=== PATIENT | male | born 1935 | race Caucasian/White ===

== ENCOUNTER 2017-06-11 08:17 | Inpatient (IN) | payer OTHER, BC ==
--- NOTE | 2017-06-11 08:45 | EDPHY ---
H & P Time Seen by Provider: 06/11/17 08:28 HPI/ROS: CHIEF COMPLAINT: Way not working, shortness of breath HISTORY OF PRESENT ILLNESS: Patient is an 82-year-old male with a history of dementia on Coumadin for AFib and previous DVT who presents emergency department with a malfunctioning suprapubic catheter. Patient's family states he had catheter placed over year ago for a "not functioning bladder." He has had numerous TURP in the past. The family states that he normally has his catheter replaced every month. He is slightly over [place] because he has been traveling. Patient flew from [place] to [place] yesterday. He lives in [place]. The patient's family noticed mild increased shortness of breath today. No cough or fever. The patient denies any chest pain or shortness of breath. Patient states he is feeling well. If it were up to the patient he would not come to the emergency department. REVIEW OF SYSTEMS: My complete review of systems is negative except as mentioned in the HPI. Past Medical/Surgical History: Includes DVT, AFib, dementia, prostate cancer Past surgical history: Includes suprapubic catheter placement, TURP Social history: The patient is . He is from [place]. He does not smoke. Smoking Status: Never smoked Physical Exam: Vitals noted GENERAL: Well-appearing, in no acute distress, alert. HEENT: Eyes normal to inspection, normal pharynx, no signs of dehydration. NECK: No thyromegaly, no lymphadenopathy, supple. RESPIRATORY: Clear to auscultation bilaterally, no rales, rhonchi or wheezing. CVS: Regular rate and rhythm, no rubs, murmurs, or gallops. ABDOMEN: Soft, nontender, nondistended, no organomegaly. Patient has a suprapubic catheter in place. There is no surrounding erythema or discharge. BACK: Normal to inspection, no CVA tenderness. SKIN: Normal color, no rash, warm, dry. No pallor. EXTREMITIES: No pedal edema, no calf tenderness, no Homans sign or cords, no joint swelling. NEURO/PSYCH: Alert and oriented, normal mood and affect, normal motor sensory exam. Constitutional: Initial Vital Signs Temperature (C) 36.4 C 06/11/17 08:23 Heart Rate 107 H 06/11/17 08:23 Respiratory Rate 18 06/11/17 08:23 Blood Pressure 148/112 H 06/11/17 08:23 O2 Sat (%) 90 L 06/11/17 08:23 O2 Delivery Mode Room Air Allergies/Adverse Reactions: No Known Allergies Allergy (Unverified 06/11/17 08:45) Home Medications: Medication Instructions Recorded Aricept 06/11/17 Bystolic 06/11/17 Cephalexin [Keflex (*)] 500 mg PO QID 7 Days 06/11/17 Coumadin 06/11/17 Namenda 10 mg 06/11/17 Medical Decision Making - Diagnostics EKG Interpretation: Atrial fibrillation at 95. Normal axis. Mildly prolonged QT. No ST or T-wave abnormality. Imaging Results: Imaging Impressions Chest X-Ray 06/11/17 08:39 Impression: Mild CHF. ED Course/Re-evaluation: In the emergency department I discussed possible etiologies with the patient. I answered all his questions. Due to his shortness of breath chest x-ray, EKG laboratory studies were ordered. UA was also ordered. Patient's Way catheter was flushed by the nurse. She states she had resistance and was unable to fully flushed the catheter. Procedure: Bedside ultrasound of bladder Indication: Suprapubic catheter malfunction At the patient's bedside I performed ultrasound. This showed a large amount of volume in the bladder. The catheter appeared to be in place. Patient is noted to have a 22 [place] suprapubic catheter in place. The largest catheter available in the emergency department is 20 Ecuadorean. I discussed the size difference with Dr. Garcia from Urology. He felt comfortable having me replace the patient's 22 Ecuadorean suprapubic catheter with the 20 Ecu[place]orean catheter. I explained this to the patient and his family. [place] [address]. The patient is anticoagulated. The patient's D-dimer and troponin are negative. Patient has mildly elevated creatinine 1.5. BNP is elevated at 9000. Patient was given Rocephin 1 g IV. Urine cultures pending. The chest x-ray: Mild CHF. No focal trait. The nursing staff attempted to remove the Way catheter. They obtained 6 mL of fluid from the balloon. There was resistance to flow. The fluid was discolored. I personally went evaluated the catheter. I was unable to withdraw any further balloon fluid. There was resistance when tension was placed on the catheter. I discussed this with Dr. Garcia from Urology. He recommended that the catheter be removed even with resistance. I discussed this with the family. I answered all her questions. The patient was given fentanyl 50 mcg IV. I removed his Way catheter with mild resistance. It was noted that the balloon had some mild calcification and there was some degradation of the tip of the Way catheter. New way placed. 400 ml out. Dark color. Sent to lab Pt ambulated with sat at 88%. Patient was noted to have an elevated white count. He did have urinary retention and abnormal urine. He has received Rocephin. He does not appear septic or toxic. The patient also had elevated BNP and a chest x-ray consistent with CHF. The patient has a mildly low oxygen saturation. He was given Lasix 40 mg IV. I discussed the case with hospitalist service. Dr. Reza will admit. Patient will go to the PCU. I discussed this with the patient and family. I answered all his questions. Differential Diagnosis: My differential includes but is not limited to catheter malfunction, urinary tract infection, pyelonephritis, dehydration, bacteremia, sepsis, pneumonia, bronchitis, PE, ACS, CHF - Data Points Laboratory Results: Laboratory Results 06/11/17 09:15 06/11/17 09:15 06/11/17 06/11/17 06/11/17 10:25 09:15 09:15 WBC RBC Hgb Hct MCV MCH MCHC RDW Plt Count MPV Neut % (Auto) Lymph % (Auto) [place] % (Auto) Eos % (Auto) Baso % (Auto) Nucleat RBC Rel Count Absolute Neuts (auto) Absolute Lymphs (auto) Absolute Monos (auto) Absolute Eos (auto) Absolute Basos (auto) Absolute Nucleated RBC Immature Gran % Immature Gran # PT 24.6 SEC H SEC (12.0-15.0) INR 2.24 H (0.83-1.16) APTT 33.6 SEC SEC (23.0-38.0) D-Dimer 0.27 ug/mLFEU ug/mLFEU (0.00-0.50) Sodium 146 mEq/L H mEq/L (134-144) Potassium 5.2 mEq/L mEq/L (3.5-5.2) Chloride 107 mEq/L mEq/L (97-110) Carbon Dioxide 24 mEq/l mEq/l (22-31) Anion Gap 15 mEq/L mEq/L (8-16) BUN 28 mg/dL H mg/dL (7-23) Creatinine 1.5 mg/dL H mg/dL (0.7-1.3) Estimated GFR 45 Glucose 173 mg/dL H mg/dL (70-100) Calcium 9.7 mg/dL mg/dL (8.5-10.4) Troponin I 0.034 ng/mL ng/mL (0.000-0.034) NT-Pro-B Natriuret Pep 9530 pg/mL H pg/mL (0-450) Urine Color RED Urine Appearance CLOUDY Urine pH 8.5 H (5.0-7.5) Ur Specific [place] 1.015 (1.002-1.030) Urine Protein 2+ H (NEGATIVE) Urine Ketones NEGATIVE (NEGATIVE) Urine Blood 3+ H (NEGATIVE) Urine Nitrate NEGATIVE (NEGATIVE) Urine Bilirubin NEGATIVE (NEGATIVE) Urine Urobilinogen 0.2 EU EU (0.2-1.0) Ur Leukocyte Esterase 2+ H (NEGATIVE) Urine RBC >182 /hpf H /hpf (0-3) Urine WBC 10-15 /hpf H /hpf (0-3) Ur Epithelial Cells TRACE /lpf /lpf (NONE-1+) Triple Phos Crystals TRACE /hpf /hpf (NONE-1+) Urine Bacteria 4+ /hpf H /hpf (NONE SEEN) Hyaline Casts 3-5 /lpf H /lpf (0-1) Granular Casts OCCASIONAL /lpf /lpf (0-1) Urine Yeast OCCASIONAL /hpf H /hpf (NONE SEEN) Urine Glucose NEGATIVE (NEGATIVE) 06/11/17 09:15 WBC 16.47 10^3/uL H 10^3/uL (3.80-9.50) RBC 5.24 10^6/uL 10^6/uL (4.40-6.38) Hgb 16.6 g/dL g/dL (13.7-17.5) Hct 49.9 % % (40.0-51.0) MCV 95.2 fL fL (81.5-99.8) MCH 31.7 pg pg (27.9-34.1) MCHC 33.3 g/dL g/dL (32.4-36.7) RDW 14.8 % % (11.5-15.2) Plt Count 211 10^3/uL 10^3/uL (150-400) MPV 12.2 fL H fL (8.7-11.7) Neut % (Auto) 90.7 % H % (39.3-74.2) Lymph % (Auto) 3.9 % L % (15.0-45.0) [place] % (Auto) 4.6 % % (4.5-13.0) Eos % (Auto) 0.0 % L % (0.6-7.6) Baso % (Auto) 0.2 % L % (0.3-1.7) Nucleat RBC Rel Count 0.0 % % (0.0-0.2) Absolute Neuts (auto) 14.95 10^3/uL H 10^3/uL (1.70-6.50) Absolute Lymphs (auto) 0.64 10^3/uL L 10^3/uL (1.00-3.00) Absolute Monos (auto) 0.75 10^3/uL 10^3/uL (0.30-0.80) Absolute Eos (auto) 0.00 10^3/uL L 10^3/uL (0.03-0.40) Absolute Basos (auto) 0.03 10^3/uL 10^3/uL (0.02-0.10) Absolute Nucleated RBC 0.00 10^3/uL 10^3/uL (0-0.01) Immature Gran % 0.6 % % (0.0-1.1) Immature Gran # 0.10 10^3/uL 10^3/uL (0.00-0.10) PT INR APTT D-Dimer Sodium Potassium Chloride Carbon Dioxide Anion Gap BUN Creatinine Estimated GFR Glucose Calcium Troponin I NT-Pro-B Natriuret Pep Urine Color Urine Appearance Urine pH Ur Specific [place] Urine Protein Urine Ketones Urine Blood Urine Nitrate Urine Bilirubin Urine Urobilinogen Ur Leukocyte Esterase Urine RBC Urine WBC Ur Epithelial Cells Triple Phos Crystals Urine Bacteria Hyaline Casts Granular Casts Urine Yeast Urine Glucose Medications Given: Discontinued Medications Fentanyl (Sublimaze) 50 mcg IVP EDNOW ONE Stop: 06/11/17 09:55 Last Admin: 06/11/17 09:58 Dose: 50 mcg Furosemide (Lasix Injection) 40 mg IVP EDNOW ONE Stop: 06/11/17 10:38 Last Admin: 06/11/17 10:57 Dose: 40 mg Ceftriaxone Sodium/Dextrose (Rocephin 1 Gm (Premix)) 50 mls @ 100 mls/hr IV EDNOW ONE PRN Reason: Protocol Stop: 06/11/17 09:57 Last Admin: 06/11/17 10:31 Dose: Not Given Ceftriaxone Sodium 1 gm/ (Sodium Chloride) 100 mls @ 200 mls/hr IV EDNOW ONE PRN Reason: Protocol Stop: 06/11/17 10:30 Last Admin: 06/11/17 10:02 Dose: 100 mls Departure - Departure Disposition: Home, Routine, Self-Care Clinical Impression: Urinary (tract) obstruction Suprapubic catheter dysfunction Qualifiers: Encounter type: initial encounter Qualified Code(s): T83.010A - Breakdown ( mechanical) of cystostomy catheter, initial encounter CHF (congestive heart failure) Qualifiers: Congestive heart failure type: unspecified congestive heart failure type Congestive heart failure chronicity: acute Qualified Code(s): I50.9 - Heart failure, unspecified Urinary tract infection Qualifiers: Urinary tract infection type: catheter-associated UTI Indwelling urinary catheter type: cystostomy catheter Encounter type: initial encounter Qualified Code(s): T83.510A - Infection and inflammatory reaction due to cystostomy catheter, initial encounter Condition: Good
--- NOTE | 2017-06-11 08:51 | CPEKG ---
Heart Rate: 95 RR Interval: 632 QRSD Interval: 88 QT Interval: 392 QTC Interval: 493 QRS [place]: 70 T Wave [place]: -66 EKG Severity - ABNORMAL ECG - EKG Impression: ATRIAL FIBRILLATION EKG Impression: LOW VOLTAGE IN FRONTAL LEADS EKG Impression: BORDERLINE PROLONGED QT INTERVAL Electronically Signed By: Luiza Garcia 11-Jun-2017 15:05:53
[2017-06-11 09:25] LABS: % IMMATURE GRANULYOCYTES 0.6 % (0.0-1.1); ADD DIFF? NO; ADD MORPH? NO; ADD SCAN? NO; ATYPICAL LYMPHOCYTE FLAG 0 (0-99); FRAGMENT RBC FLAG 0 (0-99); HEMATOCRIT 49.9 % (40.0-51.0); HEMOGLOBIN 16.6 g/dL (13.7-17.5); LEFT SHIFT FLG 0 (0-99); LIPEMIA HEMOLYSIS FLAG 80 (0-99); MEAN CELL HEMOGLOBIN 31.7 pg (27.9-34.1); MEAN CELL HEMOGLOBIN CONCENTR. 33.3 g/dL (32.4-36.7); MEAN CELL VOLUME 95.2 fL (81.5-99.8); MEAN PLATELET VOLUME 12.2 fL (8.7-11.7); PLATELET CLUMPS FLAG 10 (0-99); PLATELET COUNT 211 10^3/uL (150-400); RED BLOOD CELL COUNT 5.24 10^6/uL (4.40-6.38); RED CELL DISTRIBUTION WIDTH 14.8 % (11.5-15.2)
[2017-06-11 09:37] LABS: CALCIUM 9.7 mg/dL (8.5-10.4); CREATININE 1.5 mg/dL (0.7-1.3); POTASSIUM 5.2 mEq/L (3.5-5.2)
[2017-06-11] MEDS ORDERED: cefTRIAXone 1 GM VIAL ONE (09:45)
[2017-06-11] MEDS ORDERED: NS 100 ML BAG (MINI-BAG) IV ONE (09:47)
[2017-06-11 09:53] LABS: TROPONIN I 0.034 ng/mL (0.000-0.034)
[2017-06-11] MEDS ORDERED: fentaNYL 100 MCG/2 ML INJ IVP ONE (09:54)
[2017-06-11 09:59] LABS: INR 2.24 (0.83-1.16); PROTIME(PATIENT) 24.6 SEC (12.0-15.0)
[2017-06-11 10:00] LABS: APTT 33.6 SEC (23.0-38.0)
[2017-06-11 10:33] LABS: COLOR RED; LEUKOCYTE ESTERASE,URINE 2+ (NEGATIVE); NITRITE,URINE NEGATIVE (NEGATIVE); PH,URINE 8.5 (5.0-7.5)
[2017-06-11] MEDS ORDERED: FUROSEMIDE 40 MG/4 ML VIAL IVP ONE ×2 (10:37→14:29)
[2017-06-11 10:47] LABS: BACTERIA 4+ /hpf (NONE SEEN); RBC,URINE >182 /hpf (0-3); YEAST OCCASIONAL /hpf (NONE SEEN)
[2017-06-11 10:50] LABS: GRANULAR CASTS OCCASIONAL /lpf (0-1)
[2017-06-11] MEDS ORDERED: VANCOMYCIN HCL/NORMAL SALINE 250 ML IV ONE (14:29)
[2017-06-11] MEDS ORDERED: ACETAMINOPHEN 325 MG TAB PO PRN (14:30)
[2017-06-11] MEDS ORDERED: ONDANSETRON 4 MG/2 ML VIAL IVP PRN (14:30)
[2017-06-11] MEDS ORDERED: ONDANSETRON DISINTEGRATING 4 MG TAB PO PRN (14:30)
--- NOTE | 2017-06-11 15:44 | GHP ---
[f rep st] HISTORY AND PHYSICAL DATE OF ADMISSION: 06/11/2017 HISTORY OF PRESENT ILLNESS: The patient is a pleasant 82-year-old gentleman with a history of atria l fibrillation, what appears to be diastolic heart failure, and suprapubic catheter for urinary rete ntion who presented to Urgent Care today with a poorly functioning catheter. Usually he wears a nig ht bag and it is typically full in the morning. It was empty this morning. It was last changed in April. It was due to be changed recently, but because of some travel, it has not been changed. He h as not had fever or chills. He has not had shortness of breath, PND, or orthopnea. It appears the patient has a history of dementia and notable a significant amount of confabulation d uring our exam. He asks if I have taken care of him previously, and he has known me well, but he rendon s never been to this hospital before. I certainly have never met him. It does not sound like he has had fever, chills, cough, sputum, nausea, vomiting, or diarrhea. He s ays he has lower extremity edema "but everybody gets that." REVIEW OF SYSTEMS: Complete 10-point review of systems conducted and negative except as noted in th e HPI. PAST MEDICAL HISTORY: 1. 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 2. History of BPH with TURPs in the past. 3. Prostate cancer. 4. History of DVT. 5. AFib. 6. Dementia. 7. Assumed diastolic heart failure. ALLERGIES: No known drug allergies. HOME MEDICATIONS: Warfarin, nebivolol, memantine, donepezil. SOCIAL HISTORY: He is a retired psychotherapist, drinks alcohol, denies cigarettes. Originally fro [facility], lives in [place]. FAMILY HISTORY: Reviewed and unremarkable. PHYSICAL EXAMINATION: VITAL SIGNS: Presenting vitals blood pressure 148/112, pulse 107 and now 90s , breathing 18 times a minute, 98% on room air. GENERAL: No acute distress. Sclerae anicteric. O ropharynx clear. Mucous membranes are moist. NECK: Supple without lymphadenopathy. JVD is elevat ed to the angle of jaw, seated or lying at 30 degrees. LUNGS: Clear to auscultation anterolaterall y. HEART: S1 and S2, sounding regular. ABDOMEN: Soft, nontender, nondistended. The area around the suprapubic catheter is clean, dry, and intact. LOWER EXTREMITIES: Show 1+ edema bilaterally. Calves nontender. SKIN: Without rash. NEUROLOGIC: Exam is nonfocal. LABORATORY: Sodium 146, potassium 5.2, chloride 107, bicarb 24, BUN 28, creatinine 1.5, glucose 173 . Troponin 0.034. BNP is 9530, no prior for comparison. INR is 2.2. White count 16, hematocrit 4 9.9, platelets 211,000. UA shows greater than 182 red cells, 10-15 white cells. IMAGING: Chest x-ray: Interpreted by me, shows small bilateral effusions with modest volume overlo ad. EKG: Interpreted by me, shows AFib at 95 with normal axis and intervals. There are no ST or T -wave changes other than T-wave inversion in II and III which is relatively normal. There is a vari ant. There are no priors for comparison. I have discussed the case Dr. Luiza Garcia. ASSESSMENT AND PLAN: This is an 82-year-old gentleman with dementia who presents with clogged [place] , probable urinary tract infection, and mild volume overload. 1. Volume overload. I suspect this is acute on chronic diastolic heart failure. He received some Lasix in the emergency department. I will give him another dose now. His elevated BNP is noted, bu t age and impaired renal function will make this appear higher. I do not know what his prior is. W ill give additional diuresis. At this point in time, I will hold off on ordering an echocardiogram since he gets the bulk of his care in [place], and he is just here for the weekend. 2. Indeterminate troponin. I suspect this is strain in the setting of renal failure. We will foll ow it. He does not have anginal symptoms nor does he have dynamic EKG changes. 3. Question urinary tract infection. It is really difficult to make a case to not treat this vivi g iven a crusted catheter, difficult removal, delayed change, pyuria, leukocytosis, and confusion. He received ceftriaxone in the emergency department. His is unaware of any evidence of resistant organisms. I will give him 1 g of vancomycin, given his suprapubic catheter. Will await urine cul ture. 4. Renal dysfunction. The patient sees a bleach machine operator in [place]. I do not know what his baselin e creatinine is. We will follow. Hypervolemic, as I have mentioned. 5. Prophylaxis. INR therapeutic. 6. Atrial fibrillation. Noted, will follow. 7. Disposition: Inpatient status. /[id number]/MODL
[2017-06-11 16:13] LABS: TROPONIN I 0.051 ng/mL (0.000-0.034)
[2017-06-11] MEDS: WARFARIN SODIUM 5 MG TAB PO SCH (16:29)
[2017-06-11] MEDS: MEMANTINE HCL 5 MG TAB PO SCH (20:34)
[2017-06-11] MEDS ORDERED: NON-FORMULARY NEW DRUG (Memantine Hcl [Namenda 10 Mg] 10 MG) PO SCH (21:00)
[2017-06-12 04:56] LABS: ANION GAP 9 mEq/L (8-16); CALCIUM 8.8 mg/dL (8.5-10.4); CARBON DIOXIDE 27 mEq/l (22-31); CHLORIDE 103 mEq/L (97-110); CREATININE 1.4 mg/dL (0.7-1.3); GLOMERULAR FILTRATION RATE 49; GLUCOSE 94 mg/dL (70-100); POTASSIUM 3.5 mEq/L (3.5-5.2); SODIUM 139 mEq/L (134-144)
[2017-06-12 05:08] LABS: TROPONIN I 0.057 ng/mL (0.000-0.034)
[2017-06-12] MEDS: MEMANTINE HCL 5 MG TAB PO SCH ×2 (08:58→20:47)
[2017-06-12] MEDS: DONEPEZIL HCL 5 MG TAB PO SCH (08:58)
[2017-06-12] MEDS ORDERED: FUROSEMIDE 40 MG/4 ML VIAL IVP ONE (10:52)
[2017-06-12] MEDS: NEBIVOLOL HCL 5 MG TAB PO SCH ×2 (11:06→13:31)
--- NOTE | 2017-06-12 11:11 | HOSPPROG ---
Hospitalist Progress Note Assessment/Plan: 82 yo m w dementia admitted w way dysfunction, probable UTI and mild chf chf: suspect acute on chronic diastolic dysfunction lasix again today echo today 2 second pause: hold bystolic NSVT: 3 beats X 1 follow UTI: i suspect this may be more colonization than actual UTI given leukocytosis will treat ceftriaxone no further vanc way changed confusion: alert but confabulating per , at baseline proph: anticoagulated + trop: not ACS strain in setting of chf and renal dysfunction dispo: inpt Subjective: tele: 2 second pause. 3 beats nsvt. no complaints Objective: Vital Signs Temp Pulse Resp BP Pulse Ox 36.8 C 62 20 106/68 95 06/12/17 07:39 06/12/17 07:39 06/12/17 07:39 06/12/17 07:39 06/12/17 07:39 Laboratory Results 06/12/17 03:42 06/11/17 06/12/17 06/13/17 05:59 05:59 05:59 Intake Total 1402 600 Output Total 3130 450 Balance -1728 150 PT 24.6 SEC (12.0-15.0) H 06/11/17 09:15 INR 2.24 (0.83-1.16) H 06/11/17 09:15 - Physical Exam Constitutional: no apparent distress, appears nourished Eyes: PERRL, anicteric sclera Ears, Nose, Mouth, Throat: moist mucous membranes, hearing normal Cardiovascular: regular rate and rhythym, no murmur, rub, or gallop, JVD, other (jvd to angle of jaw), No systolic murmur Respiratory: no respiratory distress, no rales or rhonchi Gastrointestinal: normoactive bowel sounds, soft, non-tender abdomen Genitourinary: other (SP tube), No way in urethra Skin: warm, normal color Musculoskeletal: full muscle strength, no muscle tenderness Neurologic: AAOx3, sensation intact bilaterally Psychiatric: interacting appropriately ICD10 Worksheet Patient Problems: Problems Problem Status Onset CHF (congestive heart failure) Acute Suprapubic catheter dysfunction Acute Urinary (tract) obstruction Acute Urinary tract infection Acute
[2017-06-12] MEDS: POTASSIUM CL 20 MEQ/15 ML UDCUP PO SCH (13:19)
--- NOTE | 2017-06-12 15:15 | ECHO ---
[id number] + + [address] : : [place] [address] : : [phone] + + Adult Echocardiographic Report + --------+ :Name: REX HOLT JStudy Date: 06/12/2017 01:28 PM : : Hospital Admission Number: [id number] Locat ion: 201: :: 1935 Gender: Male Height: 72 in : :Age: 82 yrs Race: WH Weight: 174 l b : : : : BSA: 2.0 mete rs2 : :History: No previous : + --------+ MMode/2D Measurements \T\ Calculations IVSd: 1.7 cm LVIDd: 4.5 cm FS: 33.1 % LVOT diam: 2.1 cm LVPWd: 0.83 cm LVIDs: 3.0 cm EDV(Teich): LVOT area: 93.4 ml 3.6 cm2 ESV(Teich): 35.7 ml EF(Teich): 61.8 % LVLd ap4: 7.2 cm SV(MOD-sp4): EDV(MOD-sp4): 44.0 ml 85.0 ml LVLs ap4: 6.6 cm ESV(MOD-sp4): 41.0 ml EF(MOD-sp4): 51.8 % Normal Measurement Values: + + :LVIDd (3.5-5.7cm) IVSd (0.6-1.1cm) LVPWd (0.6-1.1cm) Aortic Root (2.0-3.7cm)Left Atrium (1.5-4.0cm): :LV Vol(d) (76-115ml) LV Vol(s) (29-48ml) Ejec Fraction (50-65%)PV Rizwan (0.6- 1.2m/s) TV Rizwan (0.4-1.0m/s) : :MV E Rizwan (0.8-1.0m/s)MV A Rizwan (0.3-1.0m/s)LVOT Rizwan (0.7-1.2m/s) Asc Ao Rizwan ( 0.9-1.8m/s) : + + Doppler Measurements \T\ Calculations Ao mean P.7 mmHgLV V1 max: SV(LVOT): TR max rizwan: Ao V2 mean: 76.0 cm/sec 34.8 ml 262.4 cm/sec 61.2 cm/sec LV V1 max PG: TR max P.5 mmHg Ao V2 VTI: 13.1 cm 2.3 mmHg RAP systole: PETROS(I,D): 2.7 cm2 LV V1 mean P.0 mmHg 1.2 mmHg RVSP(TR): 42.5 mmHg LV V1 mean: 50.0 cm/sec LV V1 VTI: 9.6 cm Left Ventricle The left ventricle is normal in size and function. There is moderate asymmetric left ventricular hypertrophy. Ejection Fraction = 55-60%. No regional wall motion abnormalities noted. Right Ventricle Borderline right ventricular enlargement. The right ventricular systolic function is normal. Atria The left atrium is severely dilated. The right atrium is severely dilated. The interatrial septum is intact with no evidence for an atrial septal defect. Mitral Valve Prolapse of the posterior mitral leaflet(s). There is no mitral valve stenosis. The mitral regurgitant jet is anteriorly directed, which is consistent with posterior leaflet pathology. There is mild to moderate mitral regurgitation. Tricuspid Valve The tricuspid valve is normal in structure and function. There is no tricuspid stenosis. There is mild tricuspid regurgitation. Right ventricular systolic pressure is 43mmHg. Aortic Valve Mild Aortic Valve Calcification. There is no aortic stenosis. Mild aortic regurgitation. Pulmonic Valve The pulmonic valve is not well visualized. There is no pulmonic valvular regurgitation. Great Vessels Mildly dilated ascending aorta. Pericardium/Pleural There is a fat pad seen. There is no pericardial effusion. Conclusion A complete two-dimensional transthoracic echocardiogram was performed (2D, M-mode, Doppler and color flow Doppler). The left ventricle is normal in size and function. Ejection Fraction = 55-60%. There is moderate asymmetric left ventricular hypertrophy. Borderline right ventricular enlargement. The left atrium is severely dilated. Mild aortic valve calcification. Mild aortic regurgitation. Mild posterior mitral leaflet prolapse. There is mild to moderate mitral regurgitation. The mitral regurgitant jet is anteriorly directed, which is consistent with posterior leaflet pathology. There is mild tricuspid regurgitation. Right ventricular systolic pressure is 43mmHg. Mildly dilated ascending aorta. Final Reading Physician: Jamila Abdullahi signed on 06/12/2017 03:14 PM Ordering Physician: Sj Tony Performed By: Tiera Guillory
[2017-06-12] MEDS: WARFARIN SODIUM 5 MG TAB PO SCH (16:02)
[2017-06-13 04:34] VITALS: TEMP 97.7
[2017-06-13 04:54] LABS: INR 2.49 (0.83-1.16); PROTIME(PATIENT) 27.2 SEC (12.0-15.0)
[2017-06-13 04:55] LABS: ANION GAP 8 mEq/L (8-16); CALCIUM 8.5 mg/dL (8.5-10.4); CARBON DIOXIDE 28 mEq/l (22-31); CHLORIDE 99 mEq/L (97-110); CREATININE 1.4 mg/dL (0.7-1.3); GLOMERULAR FILTRATION RATE 49; GLUCOSE 85 mg/dL (70-100); POTASSIUM 3.7 mEq/L (3.5-5.2); SODIUM 135 mEq/L (134-144)
[2017-06-13 07:26] VITALS: BP 114/81; PULSE 77; RESP 12; O2SAT 93
[2017-06-13] MEDS: DONEPEZIL HCL 5 MG TAB PO SCH (10:22)
[2017-06-13] MEDS: MEMANTINE HCL 5 MG TAB PO SCH (10:22)
[2017-06-13] MEDS: NEBIVOLOL HCL 5 MG TAB PO SCH (10:22)
[2017-06-13] MEDS: POTASSIUM CL 20 MEQ/15 ML UDCUP PO SCH (10:23)
--- NOTE | 2017-06-13 10:47 | HOSPPROG ---
Hospitalist Progress Note Assessment/Plan: 82 yo m w dementia admitted w way dysfunction, probable UTI and mild chf chf: suspect acute on chronic diastolic dysfunction echo w dd now euvolemic 2 second pause: hold bystolic NSVT: 3 beats X 1 follow UTI: i suspect this may be more colonization than actual UTI given leukocytosis will treat dc abx colonization confusion: alert but confabulating per , at baseline daughter at bedside, acknowledges he is at baseline proph: anticoagulated + trop: not ACS strain in setting of chf and renal dysfunction dispo: home today > 30 minutes see dc summary Subjective: no events telemetry. discussed case w daughter Objective: Vital Signs Temp Pulse Resp BP Pulse Ox 36.5 C 77 12 114/81 H 93 06/13/17 07:24 06/13/17 07:24 06/13/17 07:24 06/13/17 07:24 06/13/17 07:24 Laboratory Results 06/13/17 03:28 06/12/17 06/13/17 06/14/17 05:59 05:59 05:59 Intake Total 1402 780 Output Total 3130 3640 Balance -1728 -2860 PT 27.2 SEC (12.0-15.0) H 06/13/17 03:28 INR 2.49 (0.83-1.16) H 06/13/17 03:28 - Physical Exam Constitutional: no apparent distress, appears nourished Eyes: PERRL, anicteric sclera Ears, Nose, Mouth, Throat: moist mucous membranes, hearing normal Cardiovascular: regular rate and rhythym, no murmur, rub, or gallop Respiratory: no respiratory distress, no rales or rhonchi Gastrointestinal: normoactive bowel sounds, soft, non-tender abdomen Genitourinary: other (SP tube), No way in urethra Skin: warm, normal color Musculoskeletal: full muscle strength, no muscle tenderness Neurologic: AAOx3, sensation intact bilaterally Psychiatric: interacting appropriately, not anxious Lymph, Heme, Immunologic: no cervical LAD ICD10 Worksheet Patient Problems: Problems Problem Status Onset CHF (congestive heart failure) Acute Suprapubic catheter dysfunction Acute Urinary (tract) obstruction Acute Urinary tract infection Acute
--- NOTE | 2017-06-13 11:25 | GDS ---
[f rep st] DISCHARGE SUMMARY DISCHARGE DIAGNOSES: 1. Chronic suprapubic catheter with colonization. 2. Malfunctioning catheter, now changed. 3. Atrial fibrillation. 4. Diastolic heart failure with mild exacerbation. 5. Positive troponin secondary to chronic renal insufficiency and left ventricular strain. HOSPITAL COURSE: Please see admission History and Physical by Dr. Sj Tony. The patient pres ented on the with a poorly functioning catheter. Evaluation revealed mild volume overload, pyu katrina, and positive troponin. He was admitted. EKG was nonischemic. He had no anginal symptoms. Th e patient had confusion and leukocytosis. He was treated for a urinary tract infection. Notably, h e had some pyuria but not much. His urine did grow out 2 different gram-negative rods. These are s till being speciated. In speaking with the patient's family, they are aware that he is currently at his baseline, and he does have a diagnosis of dementia with significant confabulation. This is fel t to represent colonization, so antibiotics have been discontinued. The patient had an echocardiogram showing diastolic dysfunction in the LV with intact LV function an d enlarged atria bilaterally. He was diuresed negative about 4.5 L while here with improvement. He is discharged home on an unchanged medication regimen. Copy requested to: Primary Care Physician Radha Olivo /[id number]/MODL
[2017-06-13] MEDS ORDERED: WARFARIN SODIUM 5 MG TAB PO SCH (16:00)
== END 2017-06-13 13:15 | disposition home or self-care (01) | DRG 698 ==
LOC: CED 08:17 → CEDHOLD 10:32 → F2W 12:31 → OBSVTOIN 14:30
PROVIDERS: ADMIT Hospitalist; ATTEND Internal Medicine
DX: T83.010A Breakdown (mechanical) of cystostomy catheter, initial encounter (principal); I50.33 Acute on chronic diastolic (congestive) heart failure; I48.91 Unspecified atrial fibrillation; F03.90 Unspecified dementia, unspecified severity, without behavioral disturbance, psychotic disturbance, mood disturbance, and anxiety; N18.9 Chronic kidney disease, unspecified; Z79.01 Long term (current) use of anticoagulants; Z86.718 Personal history of other venous thrombosis and embolism; Z85.46 Personal history of malignant neoplasm of prostate
CPT/HCPCS: 71020-PO; 80048-PO; 81003-PO; 81015-PO; 83880-PO; 84484-PO; 85025-PO; 85378-PO; 85610-PO; 85730-PO; 96365; 97116-GP; 97161-GP; 97165-GO; 97535-GO; G8978-GP-CJ; G8979-GP-CI; G8987-GO-CK; G8988-GO-CI; G8988-GO-CJ; G8989-GO-CJ; J0696; J1940; J3010; J3370